=== PATIENT | male | born 1995 | race Caucasian/White ===

== ENCOUNTER 2017-02-07 16:18 | Emergency (ER) | payer MEDICAID, OTHER ==
[~2017-02-07] VITALS: Wt 71.0 kg
[~2017-02-07 16:18] MED LIST: CEPH500C
[2017-02-07 19:51] LABS: ADD UMIC YES; UR ASCORBIC ACID NEGATIVE (NEGATIVE); UR BACTERIA FEW /HPF (NONE SEEN); UR BILIRUBIN (Dip) NEGATIVE (NEGATIVE); UR BLOOD (Dip) 3+ mg/dL (NEGATIVE); UR CLARITY CLEAR (CLEAR); UR COLOR YELLOW (YELLOW); UR GLUCOSE (Dip) NEGATIVE (NEGATIVE); UR KETONES (Dip) NEGATIVE (NEGATIVE); UR LEUKOCYTE ESTERASE (Dip) NEGATIVE Leu/ul (NEGATIVE); UR NITRITE (Dip) NEGATIVE (NEGATIVE); UR RBC 1 /HPF (0-5); UR SPECIFIC GRAVITY (Dip) 1.005 (1.003-1.030); UR TOTAL PROTEIN (Dip) NEGATIVE (NEGATIVE); UR UROBILINOGEN (Dip) NEGATIVE (NEGATIVE)
--- NOTE | 2017-02-07 19:58 | ERD ---
ER Documentation Chief Complaint Chief Complaint hematuria x 1 , urgency HPI 21-year-old male presents with a chief complaints of hematuria occurring after masturbation at 3 year. Associated dysuria. Not sexually active. 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 Chest x-ray negative. [employer] is still requiring him to take isoniazid. Denies trauma, fever, chills, sick contacts, testicular pain, sexual activity, dyspareunia, or discharge. Has not taken any medications to relieve the symptoms. No other medical conditions. No recent travel. Vaccination status up-to-date. Patient has no other complaints and describes no other associated manifestations. ROS All systems reviewed and are negative except as per history of present illness. Medications Home Meds Reported Medications Cephalexin* (Cephalexin*) 500 Mg Capsule 01/03/12 Allergies Allergies: Coded Allergies: No Known Allergy (Unverified , 01/03/12) PMhx/Soc Medical and Surgical Hx: pt denies Medical Hx History of Surgery: Yes (TONSILECTOMY) Anesthesia Reaction: No Hx Neurological Disorder: No Hx Respiratory Disorders: No Hx Cardiac Disorders: No Hx Psychiatric Problems: No Hx Miscellaneous Medical Probl: No Hx Alcohol Use: No Hx Substance Use: No Hx Tobacco Use: No Smoking Status: Never smoker Physical Exam Vitals Vital Signs Date Time Temp Pulse Resp B/P Pulse Ox O2 Delivery O2 Flow Rate FiO2 02/07/17 16:25 98.4 92 18 136/94 99 Physical Exam Const: Well-appearing 21-year-old male no acute distress. Head: Atraumatic Resp: Clear to auscultation bilaterally Cardio: Regular rate and rhythm, no murmurs Abd: No suprapubic tenderness. Soft, non tender, non distended. Normal bowel sounds Skin: No petechiae or rashes Back: No midline, CVA, or flank tenderness. Ext: No cyanosis, or edema Neur: Awake and alert Psych: Normal Mood and Affect No testicular pain. No discharge or obvious abnormalities noted. No rash. Results 24 hrs Laboratory Tests Test 02/07/17 18:00 Urine Color YELLOW Urine Clarity CLEAR Urine pH 6.0 Urine Specific [place] 1.005 Urine Ketones NEGATIVEmg/dL Urine Nitrite NEGATIVEmg/dL Urine Bilirubin NEGATIVEmg/dL Urine Urobilinogen NEGATIVEmg/dL Urine Leukocyte Esterase NEGATIVELeu/ul Urine Microscopic RBC 1/HPF Urine Microscopic WBC 1/HPF Urine Bacteria FEW/HPF Urine Hemoglobin 3+mg/dL Urine Glucose NEGATIVEmg/dL Urine Total Protein NEGATIVEmg/dl Procedures/MDM Otherwise healthy 21-year-old male presenting with a chief complaint of hematuria after masturbation for the past year. Associated dysuria. No hematuria or dysuria before masturbation. Denies urgency, frequency, back pain. Urinalysis and culture were obtained. Urinalysis was largely unremarkable. No indication for antibiotics at this time. A urology referral list has been given. No suspicion for testicular torsion, UTI, epididymitis, trauma, or other acute pathology. Most likely diagnosis is hematuria of unknown etiology. I have spoke with the patient regarding their condition and future management. They have verbally responded that they understand their status and treatment plan. The patients vitals are stable, and their current condition is appropriate for discharge. The patient will be given discharge instructions with return precautions. Departure Diagnosis: Primary Impression: Dysuria Condition: Stable Additional Instructions: Follow up with your PCP within the next 1-3 days for a more thorough evaluation and a possible referral to a specialist. Return the the emergency department immediately if symptoms worsen or change. If you have any questions regarding medications, ask your pharmacist or us before you leave. If any adverse reactions occur while taking your medications, discontinue the treatment and return to the emergency department immediately. Take your medications as directed, and complete the entire course of treatment. MARTIN FAY PA-C Feb 07, 2017 19:58
[2017-02-07 20:22] VITALS: BP 132/76; PULSE 84; RESP 16; TEMP 98.2
== END 2017-02-07 20:24 | disposition home or self-care (01) ==
LOC: FTE 16:18
DX: R30.0 Dysuria (principal)
CPT/HCPCS: 81001; 87086; Z7502; 99283